=== PATIENT | female | born 1930 | race Two or more races ===

== ENCOUNTER 2018-05-17 18:36 | Inpatient (IN) ==
[2018-05-17] MEDS ORDERED: Acetaminophen 325 MG Tablet PO PRN (22:16)
[2018-05-17] MEDS ORDERED: Bisacodyl 10 MG Supp RECTAL PRN (22:16)
[2018-05-17] MEDS ORDERED: fentaNYL Citrate Inj 100 MCG/2 ML Ampul IV PUSH PRN (22:16)
[2018-05-17] MEDS ORDERED: Sod Chloride 0.9% Inj 1,000 ML IV.CONT SCH (22:30)
--- NOTE | 2018-05-17 22:51 | P.HPCC ---
History of Present Illness Service: Critical care medicine Primary Care Physician: UNKNOWN History of Present Illness: 88-year-old female transferred to [facility] for posterior circulation stroke. She was found unresponsive the morning of 05/17. She had last been seen normal at midnight. She was intubated in the field. 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 She was transferred for possible intervention. Inpatient Certification: I certify that the inpatient services were ordered in accordance with Medicare regulations governing the order. This includes certification that hospital inpatient services are reasonable and necessary and in the case of services not specified as inpatient-only under 42 CFR 419.22(n), that they are appropriately provided as inpatient services in accordance to with the 2-midnight benchmark under 43 CFR 412.3(e) Estimated Total Length of Stay (Days): 7 Plans for Post Hospital Care: Not yet determined [facility], [facility] - History History Provided By: Medical Record - Medical History Medical History: Medical History (Last Updated 05/18/18 @ 04:14 by Carol Kim MD) Tobacco abuse, in remission (Acute) Dementia (Acute) - Surgical History Surgical History: Surgical History (Last Updated 05/18/18 @ 04:15 by Carol Kim MD) H/O total knee replacement History of bladder suspension procedure - Family History Family History: Family History (Last Updated 05/18/18 @ 04:17 by Carol Kim MD) Father Pneumonia Mother Tuberculosis - Tobacco History Tobacco Use In Past 30 Days: No (Son was living with her after her caregiver could no longer care for her.) Smoking Status: Former smoker Tobacco Type: Cigarettes Smoking End Date: 30 years ago. - Alcohol History How Often Do You Have a Drink Containing Alcohol: Never - Substance Use History Substance History: No History of Abuse Medications and Allergies Active Medications: Active Medications Acetaminophen (Tylenol) 650 mg PO Q6H PRN PRN Reason: temp >101 Al Hydroxide/Mg Hydroxide (Milk Of Magnesia Liq) 30 ml PO Q12H PRN PRN Reason: Mild Constipation Albuterol (Albuterol Neb (Prn)) 2.5 mg NEB Q2HR NEB PRN PRN Reason: SHORTNESS OF BREATH/WHEEZING Bisacodyl (Dulcolax Supp) 10 mg RECTAL DAILY PRN PRN Reason: SEVERE CONSITIPATION Chlorhexidine Gluconate (Chlorhexidine 2% Cloth) 3 pack TOPICAL DAILY@0400 [facility] Stop: 05/23/18 03:59 Chlorhexidine Gluconate (Chlorhexidine 2% Cloth) 3 pack TOPICAL DAILY@0400 PRN PRN Reason: Extra cloth needed Stop: 05/23/18 03:59 Fentanyl Citrate (Fentanyl Inj) 50 mcg IV PUSH Q1H PRN PRN Reason: Pain scale 6-10, &/or sedation Sodium Chloride (Ns Inj) 1,000 mls @ 70 mls/hr IV.CONT .[id number] [facility] Lactulose (Lactulose Liq) 30 ml PO DAILY PRN PRN Reason: SEVERE CONSITIPATION Pantoprazole Sodium (Protonix Inj) 40 mg IV.PUSH DAILY [facility] Senna/Docusate Sodium (Anamika-Colace) 1 tab PO BID [facility] Sennosides (Senokot) 17.2 mg PO Q12H PRN PRN Reason: Moderate Constipation Sodium Chloride (Ns Flush) 2 ml IV.FLUSH BID JUANY Sodium Chloride (Ns Flush) 2 ml IV.FLUSH PRN PRN PRN Reason: FLUSH AFTER USING IV ACCESS Allergies Allergy/AdvReac Type Severity Reaction Status Date / Time codeine Allergy Unknown Unverified 06/10/17 15:47 penicillin G Allergy Unknown Unverified 06/10/17 15:47 Results - Labs CBC & Chem 7: 05/18/18 03:29 05/18/18 03:29 Exam Vital signs: Vital Signs 05/17/18 21:46 Respiratory Rate 20 Pulse Oximetry 100 Narrative: GENERAL: Elderly female who is orotracheally intubated. She has not on any continuous sedation. SKIN: Warm and dry. HEAD: Atraumatic. Normocephalic. EYES: Right pupil is pinpoint and very sluggishly reactive. Left pupil is slightly are larger and irregular, 2 mm with some reaction.. No scleral icterus. No injection or drainage. ENT: No nasal bleeding or discharge. Mucous membranes moist NECK: Trachea midline. No JVD. CARDIOVASCULAR: Irregularly irregular, 3 out of 6 murmur left sternal border. RESPIRATORY: Orotracheally intubated. Bilateral rhonchi. GASTROINTESTINAL: Abdomen soft, non-tender, nondistended.. Bowel sounds present. MUSCULOSKELETAL: Extremities without clubbing, cyanosis, or edema. NEUROLOGICAL: No eye opening to deep noxious stimuli. Picks up left hand and moves left foot spontaneously somewhat. Withdraws with all extremities. Moves left more than right. Caprini VTE Risk Assessment Caprini VTE Risk Assessment: Moderate/High Risk (score >= 2) VTE Pharmacological Exception Reason: Documented (Comfort measures) Caprini Risk Assessment Model: Point Value = 1 Point Value = 2 Point Value = 3 Point Value = 5 Age 41-60 Minor surgery BMI > 25 kg/m2 Swollen legs Varicose veins or History of unexplained or recurrent spontaneous Oral contraceptives or hormone replacement Sepsis (< 1 month) Serious lung disease, including pneumonia (< 1 month) Abnormal pulmonary function Acute myocardial infarction Congestive heart failure (< 1 month) History of inflammatory bowel disease Medical patient at bed rest Age 61-74 Arthroscopic surgery Major open surgery (> 45 min) Laparoscopic surgery (> 45 min) Malignancy Confined to bed (> 72 hours) Immobilizing plaster cast Central venous access Age >= 75 History of VTE Family history of VTE Factor V Leiden Prothrombin [id number] Lupus anticoagulant Anticardiolipin antibodies Elevated serum homocysteine Heparin-induced thrombocytopenia Other congenital or acquired thrombophilia Stroke (< 1 month) Elective arthroplasty Hip, pelvis, or leg fracture Acute spinal cord injury (< 1 month) Prophylaxis Regimen: Total Risk Factor Score Risk Level Prophylaxis Regimen 0-1 Low Early ambulation 2 Moderate Order ONE of the following: *Sequential Compression Device (SCD) *Heparin 5000 units SQ BID 3-4 Higher Order ONE of the following medications: *Heparin 5000 units SQ TID *Enoxaparin/Lovenox 40 mg SQ daily (WT < 150 kg, CrCl > 30 mL/min) *Enoxaparin/Lovenox 30 mg SQ daily (WT < 150 kg, CrCl > 10-29 mL/min) *Enoxaparin/Lovenox 30 mg SQ BID (WT < 150 kg, CrCl > 30 mL/min) AND/OR *Sequential Compression Device (SCD) 5 or more Highest Order ONE of the following medications: *Heparin 5000 units SQ TID (Preferred with Epidurals) *Enoxaparin/Lovenox 40 mg SQ daily (WT < 150 kg, CrCl > 30 mL/min) *Enoxaparin/Lovenox 30 mg SQ daily (WT < 150 kg, CrCl > 10-29 mL/min) *Enoxaparin/Lovenox 30 mg SQ BID (WT < 150 kg, CrCl > 30 mL/min) AND *Sequential Compression Device (SCD) Assessment and Plan - Assessment and Plan Plan: NEURO: Acute Stroke midbrain and kalin Dementia Patient was transferred for evaluation for basilar artery thrombectomy. . She awoke with symptoms the morning of 05/17 and was last seen at baseline at midnight so beyond typical time frame for intervention, though gave some consideration due to location and overall prognosis. MRI demonstrates brainstem infarct. Discussed with Dr. Miller who states based on imaging findings there is no role for intervention. Discussed with Dr. aWllace, states he does not want heparin started. Recommends hospice care. I called patients son after review of imaging and discussion with consultants. He states he is her healthcare surrogate and he states she would desire DNR, initiation of comfort measures, and hospice care. He requests hospice consultation. If she survives palliative extubation, he would like her to be in a hospice care center near her home in [place]. In view of condition to comfort measures will initiate fentanyl drip to ensure comfort while on mechanical ventilation. RESP: Acute respiratory failure Chest x-ray shows left upper lobe infiltrate CV: Atrial fibrillation GI: OG tube FEN/RENAL: Rush for palliation ID: Aspiration pneumonia Comfort measures. HEME: Check CBC ENDO: Euglycemia PROPH: SCDs for DVT prophylaxis. Pharmacologic DVT prophylaxis will be held in view of focus on comfort measures now ACCESS: Peripheral IV providing adequate access at this time. DO NOT RESUSCITATE per discussion with patient's son, Roderick Alberto. He desires comfort measures. States he will bring in copy of her advance directives in the morning. Hospice consult. I have signed withdrawal documents. Discussed with consulting neurologist. Level 3 H&P
--- NOTE | 2018-05-17 22:57 | XR ---
EXAM DATE: 05/17/2018 10:47 PM EDT AGE/SEX: 88 years / Female INDICATIONS: Shortness of breath. CLINICAL DATA: This is the patient's initial encounter. Patient reports that signs and symptoms have been present for 1 day and indicates a pain score of Nonresponsive. MEDICAL/SURGICAL HISTORY: Non-responsive. Non-responsive. COMPARISON: [facility] [place], CHEST PA & LAT, 05/09/2011. . FINDINGS: ET tube tip well above the constantino. Gastric tube tip projects within the stomach. There are new ill-de fined nonconsolidative infiltrates in the left midlung. The right lung is clear. The heart is normal in size. CONCLUSION: 1. ET tube in good position. 2. New nonconsolidative infiltrate in the left mid/upper lung. Electronically signed by: Mario Saavedra MD 05/17/2018 10:55 PM EDT
[2018-05-17] MEDS ORDERED: Gadobutrol PF 7.5 MMOL/7.5 ML Vial (for RAD) IV.SIG ONE (23:03)
--- NOTE | 2018-05-17 23:16 | MR ---
EXAM DATE: 05/17/2018 11:02 PM EDT AGE/SEX: 88 years / Female INDICATIONS: Altered mental status. Abnormal CT. CLINICAL DATA: This is the patient's initial encounter. Patient reports that signs and symptoms have been present for 1 day and indicates a pain score of 0/10. MEDICAL/SURGICAL HISTORY: Carcinoma, breast. Hypertension. Total knee replacement, left. Bladd er suspension. COMPARISON: [facility] [place] HEAD W & W/O CONTRAST, 05/17/2018. . TECHNIQUE: 3D [id number] MRA was performed. Source images, multiplanar STS MIP, and 3D volum e MIP reconstructions were reviewed. FINDINGS: The anterior circulation is intact. The anterior and middle cerebral arteries are normal size and sym metric in appearance. No flow seen in the anterior communicating artery or in the posterior communica ting arteries. The posterior circulation is abnormal. The vertebral system is right dominant. Some flow is seen in t he proximal basilar artery for less than 1 cm and then is no flow seen in the basilar artery. No flow seen in the superior cerebellar or posterior cerebral arteries on either side. CONCLUSION: 1. Proximal basilar artery occlusion with no flow seen in the superior cerebellar or posterior cereb ral arteries on either side. Electronically signed by: Mario Saavedra MD 05/17/2018 11:15 PM EDT
--- NOTE | 2018-05-17 23:42 | MR ---
EXAM DATE: 05/17/2018 11:08 PM EDT AGE/SEX: 88 years / Female INDICATIONS: Altered mental status. Abnormal CT. CLINICAL DATA: This is the patient's initial encounter. Patient reports that signs and symptoms have been present for 1 day and indicates a pain score of 0/10. MEDICAL/SURGICAL HISTORY: Carcinoma, breast. Hypertension. Total knee replacement, left. Bladd er suspension COMPARISON: [facility], MRA HEAD W/O CONTRAST, 05/17/2018. . TECHNIQUE: Multiplanar, multisequence examination of the brain was performed without and with 6cc ml Gadavist (gadobutrol) contrast as a single exam dose. FINDINGS: Cerebrum: The ventricles are normal for age. Minimal, symmetric cortical atrophy. No evidence of mi dline shift, mass lesion, hemorrhage or acute infarction. No extraaxial fluid collections are seen. The pituitary gland and suprasellar cistern are normal in configuration. White Matter: Mild periventricular and scattered deep white matter tract areas of small vessel ische shivani demyelination Posterior Fossa: Severe diffusion restriction in the mesencephalon with moderately severe diffusion r estriction throughout the kalin, slightly worse rightward. No hemorrhage Diffusion Imaging: Again, marked diffusion restriction in the lesion cephalad with moderately severe diffusion restriction throughout most of the kalin characteristic of infarction. Extracranial: The visualized portions of the orbits and paranasal sinuses are unremarkable. Post Contrast: No abnormal areas of parenchymal or dural enhancement. No evidence of blood-brain ba rrier breakdown. CONCLUSION: 1. MR findings characteristic of an acute or subacute infarction in the mesencephalon and kalin of th e midbrain. 2. Mild chronic changes in the supratentorial portions of the brain with some periventricular and de ep white matter tracts small vessel ischemic demyelination and minimal, symmetric cortical atrophy. Electronically signed by: Jaun Miller MD 05/17/2018 11:41 PM EDT
[2018-05-18 00:58] LABS: Calcium 9.2 mg/dL (8.5-10.1); Carbon Dioxide 24.1 meq/L (21.0-32.0); Potassium 4.1 meq/L (3.5-5.1)
[2018-05-18] MEDS ORDERED: fentaNYL 10 mcg/mL Premix Drip 2,500 MCG/250 ML BAG IV.SIG PRN (02:15)
[2018-05-18] MEDS ORDERED: Chlorhexidine Gluconate 2% 1 Pack (2 Cloths) TOPICAL SCH (04:00)
[2018-05-18] MEDS ORDERED: Chlorhexidine Gluconate 2% 1 Pack (2 Cloths) TOPICAL PRN (04:00)
[2018-05-18 05:06] LABS: Calcium 9.1 mg/dL (8.5-10.1); Carbon Dioxide 24.7 meq/L (21.0-32.0); Potassium 4.2 meq/L (3.5-5.1)
[2018-05-18 05:07] LABS: Baso % (Auto) 0.3 % (0.0-2.0); Hematocrit 39.9 % (35.0-46.0); Lymph # (Auto) 0.7 th/mm3 (1.0-4.8); Mean Corpuscular HGB Conc 32.6 % (32.0-36.0); Mean Corpuscular Hemoglobin 29.6 pg (27.0-34.0); Mean Platelet Volume 8.5 fL (7.0-11.0); Mono # (Auto) 0.8 th/mm3 (0.0-0.9); Neut # (Auto) 10.5 th/mm3 (1.8-7.7); Neut % (Auto) 86.7 % (16.0-70.0); Platelet Count 158 th/mm3 (150-450); Red Blood Count 4.39 mil/mm3 (4.00-5.30); Red Cell Distribution Width 14.8 % (11.6-17.2); White Blood Count 12.1 th/mm3 (4.0-11.0)
--- NOTE | 2018-05-18 07:14 | P.PNCC ---
Subjective Subjective Remarks/Hospital Course: History of Present Illness: 88-year-old female transferred to [facility] for posterior circulation stroke. 05/18: Patient is out of window for interventional procedure or TPA. This is a devastating injury and family has made patient DNR status. She remains ventilator dependent Objective Vital Signs / I&O: Vital Signs 05/17/18 21:46 05/17/18 22:35 05/18/18 00:00 Temperature 98.6 F Pulse Rate 110 H Respiratory Rate 20 16 Blood Pressure 99/72 L Pulse Oximetry 100 100 100 05/18/18 00:49 05/18/18 01:00 05/18/18 02:00 Temperature Pulse Rate 108 H 103 H Respiratory Rate 16 19 16 Blood Pressure 129/68 150/67 H Pulse Oximetry 100 100 100 05/18/18 03:00 05/18/18 04:00 05/18/18 04:22 Temperature 99 F Pulse Rate 104 H 112 H Respiratory Rate 18 26 H 18 Blood Pressure 136/60 154/68 H Pulse Oximetry 100 100 100 05/18/18 05:00 05/18/18 06:00 Temperature Pulse Rate 112 H 107 H Respiratory Rate 21 25 H Blood Pressure 151/67 H 151/68 H Pulse Oximetry 100 100 Intake & Output 05/17/18 05/18/18 05/18/18 18:59 06:59 18:59 Output Total 350 / 350 Balance -350 / -350 Weight 65.7 kg Output: Urine Amount (Catheter) 350 / 350 Indwelling Urethral Catheter 350 / 350 Other: Weight On Admission 65.7 kg Result Diagrams: 05/18/18 03:29 05/18/18 03:29 Objective Remarks: Physical exam: GENERAL: Elderly female who is orotracheally intubated. She has not on any continuous sedation. SKIN: Warm and dry. HEAD: Atraumatic. Normocephalic. EYES: Right pupil is pinpoint and sluggishly reactive. Left pupil is slightly are larger and irregular, 2 mm with some reaction.. No scleral icterus. No injection or drainage. ENT: No nasal bleeding or discharge. Mucous membranes moist NECK: Trachea midline. No JVD. Intubated oral tracheal route. CARDIOVASCULAR: Irregularly irregular, 3 out of 6 murmur left sternal border. Neck veins full, no JVD. RESPIRATORY: Orotracheally intubated. Bilateral rhonchi. GASTROINTESTINAL: Abdomen soft, non-tender, nondistended.. Bowel sounds present. MUSCULOSKELETAL: Extremities without clubbing, cyanosis, or edema. Well- perfused. NEUROLOGICAL: No eye opening to deep noxious stimuli. Picks up left hand and moves left foot spontaneously somewhat. Withdraws with all extremities. Moves left more than right. Assessment and Plan - Assessment and Plan Plan: NEURO: Acute Stroke midbrain and kalin Dementia Patient was transferred for evaluation for basilar artery thrombectomy. She awoke with symptoms the morning of 05/17 and was last seen at baseline at midnight. MRI demonstrates brainstem infarct. Discussed with Dr. Miller who states based on imaging findings there is no role for intervention. Discussed with Dr. Wallace, states he does not want heparin started. Recommends hospice care. I called patients son after review of imaging and discussion with consultants. He states he is her healthcare surrogate and he states she would desire DNR, initiation of comfort measures, and hospice care. He requests hospice consultation. If she survives palliative extubation, he would like her to be in a hospice care center near her home in [place]. In view of condition to comfort measures will initiate fentanyl drip to ensure comfort while on mechanical ventilation. RESP: Acute respiratory failure Chest x-ray shows left upper lobe infiltrate CV: Atrial fibrillation GI: OG tube FEN/RENAL: Rush for palliation ID: Aspiration pneumonia HEME: Check CBC ENDO: Euglycemia PROPH: SCDs for DVT prophylaxis. Pharmacologic DVT prophylaxis will be held in view of focus on comfort measures now ACCESS: Peripheral IV providing adequate access at this time. DO NOT RESUSCITATE per discussion with patient's son, Roderick Alberto. He desires comfort measures. States he will bring in copy of her advance directives in the morning. Hospice consult. I will sign exhibits. Discussed with consulting neurologist. Overall impression: This is a devastating neurological injury from an ischemic stroke. There is really no chance for meaningful recovery from this disease process. Family has appropriately requested hospice care.
[2018-05-18] MEDS ORDERED: Morphine Sulfate Inj 8 MG/ML Vial IV.PUSH ONE (07:42)
[2018-05-18] MEDS ORDERED: Morphine Inj 4 MG/ML Vial IV.PUSH ONE (07:42)
[2018-05-18] MEDS ORDERED: Hyoscyamine Inj 0.5 MG/ML Ampul IV.PUSH PRN (07:42)
[2018-05-18] MEDS: Senna/Docusate Sodium 8.6/50 MG Tablet PO SCH ×2 (08:22→20:16)
[2018-05-18] MEDS ORDERED: Bisacodyl 10 MG Supp RECTAL PRN (09:00)
[2018-05-18] MEDS ORDERED: Pantoprazole Inj 40 MG Vial IV.PUSH SCH (09:00)
--- NOTE | 2018-05-18 09:18 | P.CONNEU ---
History of Present Illness Service: Neurology Primary Care Provider: UNKNOWN Family Provider: MD MATAMOROS History of Present Illness: 88-year-old female transferred from outside facility for possible intervention. Case is discussed with tele-stroke neurologist at the outside hospital. Patient was last known well approximately 17 hours prior to my discussion with his neurologist. She arrived at our facility close to 21 hours of her last known well. She apparently was found to have atrial fibrillation changes in mental status was intubated at the hospital. He did a CTA of the brain and carotids which demonstrated a basilar occlusion. Unable to obtain any information from the patient she is intubated in the intensive care unit. MRI brain scan was performed which demonstrated acute to subacute stroke in the medial midbrain and a large portion of the kalin. Based on the amount of ischemic injury lack of neuro exam time duration and age is felt there may be more harm than good with intervention. Review of Systems unobtainable due to mental status PMFSH - History History Provided By: Medical Record - Medical History Medical History: Medical History (Last Reviewed 05/18/18 @ 07:18 by Maria M Miranda) Tobacco abuse, in remission (Acute) Dementia (Acute) - Surgical History Surgical History: Surgical History (Last Reviewed 05/18/18 @ 07:18 by Maria M Miranda) H/O total knee replacement History of bladder suspension procedure - Family History Family History: Family History (Last Reviewed 05/18/18 @ 07:18 by Maria M Miranda) Father Pneumonia Mother Tuberculosis - Tobacco History Tobacco Use In Past 30 Days: No (Son was living with her after her caregiver could no longer care for her.) Smoking Status: Former smoker Tobacco Type: Cigarettes Smoking End Date: 30 years ago. - Alcohol History How Often Do You Have a Drink Containing Alcohol: Never - Substance Use History Substance History: No History of Abuse Medications and Allergies Active Medications: Active Medications Acetaminophen (Tylenol) 650 mg PO Q6H PRN PRN Reason: temp >101 Al Hydroxide/Mg Hydroxide (Milk Of Magnmarcio Liq) 30 ml PO Q12H PRN PRN Reason: Mild Constipation Albuterol (Albuterol Neb (Prn)) 2.5 mg NEB Q2HR NEB PRN PRN Reason: SHORTNESS OF BREATH/WHEEZING Bisacodyl (Dulcolax Supp) 10 mg RECTAL DAILY PRN PRN Reason: SEVERE CONSITIPATION Bisacodyl (Dulcolax Supp) 10 mg RECTAL DAILY PRN PRN Reason: CONSTIPATION Chlorhexidine Gluconate (Chlorhexidine 2% Cloth) 3 pack TOPICAL DAILY@0400 [facility] Stop: 05/23/18 03:59 Last Admin: 05/18/18 03:38 Dose: Not Given Chlorhexidine Gluconate (Chlorhexidine 2% Cloth) 3 pack TOPICAL DAILY@0400 PRN PRN Reason: Extra cloth needed Stop: 05/23/18 03:59 Fentanyl Citrate (Fentanyl Inj) 50 mcg IV PUSH Q1H PRN PRN Reason: Pain scale 6-10, &/or sedation Furosemide (Lasix Inj) 20 mg IV.PUSH Q6H PRN PRN Reason: Pulmonary Congestion Hyoscyamine (Levsin Inj) 0.25 mg IV.PUSH Q4H PRN PRN Reason: SECRETIONS Sodium Chloride (Ns Inj) 1,000 mls @ 70 mls/hr IV.CONT .[id number] [facility] Last Admin: 05/17/18 23:45 Dose: 70 mls/hr Fentanyl (Fentanyl 10 Mcg/Ml Premix Drip) 2,500 mcg in 250 mls @ 5 mls/hr IV.SIG TITRATE PRN; Protocol PRN Reason: Per Protocol Last Admin: 05/18/18 08:21 Dose: 50 mcg/hr, 5 mls/hr Lactulose (Lactulose Liq) 30 ml PO DAILY PRN PRN Reason: SEVERE CONSITIPATION Lorazepam (Ativan Inj) 2 mg IV.PUSH Q15M PRN PRN Reason: SEIZURES Morphine Sulfate (Morphine Inj) 6 mg IV.PUSH Q30M PRN PRN Reason: SEE LABEL COMMENTS Pantoprazole Sodium (Protonix Inj) 40 mg IV.PUSH DAILY [facility] Last Admin: 05/18/18 08:22 Dose: 40 mg Senna/Docusate Sodium (Anamika-Colace) 1 tab PO BID [facility] Last Admin: 05/18/18 08:22 Dose: Not Given Sennosides (Senokot) 17.2 mg PO Q12H PRN PRN Reason: Moderate Constipation Sodium Chloride (Ns Flush) 2 ml IV.FLUSH BID [facility] Last Admin: 05/18/18 08:22 Dose: Not Given Sodium Chloride (Ns Flush) 2 ml IV.FLUSH PRN PRN PRN Reason: FLUSH AFTER USING IV ACCESS Allergies Allergy/AdvReac Type Severity Reaction Status Date / Time codeine Allergy Unknown Unverified 06/10/17 15:47 penicillin G Allergy Unknown Unverified 06/10/17 15:47 Exam Vital signs: Vital Signs 05/17/18 21:46 05/17/18 22:35 05/18/18 00:00 Temperature 98.6 F Pulse Rate 110 H Respiratory Rate 20 16 Blood Pressure 99/72 L Pulse Oximetry 100 100 100 05/18/18 00:49 05/18/18 01:00 05/18/18 02:00 Temperature Pulse Rate 108 H 103 H Respiratory Rate 16 19 16 Blood Pressure 129/68 150/67 H Pulse Oximetry 100 100 100 05/18/18 03:00 05/18/18 04:00 05/18/18 04:22 Temperature 99 F Pulse Rate 104 H 112 H Respiratory Rate 18 26 H 18 Blood Pressure 136/60 154/68 H Pulse Oximetry 100 100 100 05/18/18 05:00 05/18/18 06:00 05/18/18 07:00 Temperature 98.7 F Pulse Rate 112 H 107 H Respiratory Rate 21 25 H 16 Blood Pressure 151/67 H 151/68 H 108/64 Pulse Oximetry 100 100 05/18/18 07:39 05/18/18 08:00 Temperature 98.7 F Pulse Rate 128 H Respiratory Rate 21 Blood Pressure 125/62 Pulse Oximetry 100 Intake & Output 05/17/18 05/18/18 05/18/18 18:59 06:59 18:59 Intake Total 0 / 0 Output Total 350 / 350 Balance -350 / -350 0 / 0 Weight 65.7 kg Intake: Oral 0 / 0 Output: Urine Amount (Catheter) 350 / 350 Indwelling Urethral Catheter 350 / 350 Other: Weight On Admission 65.7 kg Narrative: GENERAL: Coma state SKIN: Warm and dry. HEAD: Normocephalic. EYES: No scleral icterus. NECK: Supple, trachea midline. CARDIOVASCULAR: Irregularly irregular RESPIRATORY: Breath sounds equal bilaterally. No accessory muscle use. GASTROINTESTINAL: Abdomen soft, non-tender, nondistended. MUSCULOSKELETAL: No cyanosis, or edema. BACK: Nontender without obvious deformity. NEUROLOGIC: Intubated in coma state nonverbal and noncommunicative. On low- dose fentanyl no other sedation. Pupils 1 mm pinpoint impaired oculocephalics horizontally and vertically. No corneal reflex. No upper extremity movement bilateral lower extremity triple flexion response with bilateral positive plantar reflex Results - Labs CBC & Chem 7: 05/18/18 03:29 05/18/18 03:29 Labs: Laboratory Results - last 24 hr 05/17/18 05/18/18 05/18/18 22:30 00:20 03:29 WBC 12.1 H RBC 4.39 Hgb 13.0 Hct 39.9 MCV 91.0 MCH 29.6 MCHC 32.6 RDW 14.8 Plt Count 158 MPV 8.5 Neut % (Auto) 86.7 H Lymph % (Auto) 6.0 L Evangeline % (Auto) 7.0 Eos % (Auto) 0.0 Baso % (Auto) 0.3 Neut # (Auto) 10.5 H Lymph # (Auto) 0.7 L Evangeline # (Auto) 0.8 Eos # (Auto) 0.0 Baso # (Auto) 0.0 WBC Differential . Differential Comment Auto diff final Sodium 139 Potassium 4.1 Chloride 107 Carbon Dioxide 24.1 Anion Gap 8 BUN 15 Creatinine 1.07 H Estimated GFR 48 L Random Glucose 108 H Calcium 9.2 Nasal Screen MRSA (PCR) Not detected 05/18/18 03:29 WBC RBC Hgb Hct MCV MCH MCHC RDW Plt Count MPV Neut % (Auto) Lymph % (Auto) Evangeline % (Auto) Eos % (Auto) Baso % (Auto) Neut # (Auto) Lymph # (Auto) Evangeline # (Auto) Eos # (Auto) Baso # (Auto) WBC Differential Differential Comment Sodium 140 Potassium 4.2 Chloride 107 Carbon Dioxide 24.7 Anion Gap 8 BUN 15 Creatinine 1.10 H Estimated GFR 47 L Random Glucose 94 Calcium 9.1 Nasal Screen MRSA (PCR) - Imaging Impressions Head MRI 05/17/18 22:14 CONCLUSION: 1. MR findings characteristic of an acute or subacute infarction in the mesencephalon and kalin of the midbrain. 2. Mild chronic changes in the supratentorial portions of the brain with some periventricular and deep white matter tracts small vessel ischemic demyelination and minimal, symmetric cortical atrophy. Head MRA 05/17/18 22:14 CONCLUSION: 1. Proximal basilar artery occlusion with no flow seen in the superior cerebellar or posterior cerebral arteries on either side. Chest X-Ray 07/22/18 22:21 CONCLUSION: 1. ET tube in good position. 2. New nonconsolidative infiltrate in the left mid/upper lung. Review/Management - Diagnosis (1) Arterial ischemic stroke, vertebrobasilar, brainstem, acute Code(s): I63.219 - Cerebral infarction due to unspecified occlusion or stenosis of unspecified vertebral arteries; I63.22 - Cerebral infarction due to unspecified occlusion or stenosis of basilar artery Status: Acute Current Visit: Yes (2) Atrial fibrillation Code(s): I48.91 - Unspecified atrial fibrillation Status: Acute Current Visit: Yes (3) Respiratory failure Code(s): J96.90 - Respiratory failure, unspecified, unspecified whether with hypoxia or hypercapnia Status: Acute Current Visit: Yes (4) Dementia Code(s): F03.90 - Unspecified dementia without behavioral disturbance Status: Acute Current Visit: Yes - Review/Management Plan: 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
[2018-05-18] MEDS: Morphine Sulfate Inj 8 MG/ML Vial IV.PUSH PRN ×2 (16:11→20:15)
[2018-05-18 20:32] VITALS: BP 54/18; RESP 14; TEMP 100.7; O2SAT 87
[2018-05-18 20:42] VITALS: PULSE 142
[2018-05-19] MEDS: Morphine Sulfate Inj 8 MG/ML Vial IV.PUSH PRN (00:30)
== END 2018-05-19 02:26 | disposition expired ==
LOC: N03 21:29
PROVIDERS: ADMIT Internal Medicine; ATTEND Internal Medicine